=== PATIENT | male | born 1970 | race Caucasian/White ===

== ENCOUNTER 2017-07-03 09:41 | Day surgery (SDC) | payer BC ==
[2017-07-03] VITALS (8 sets, daily range): BP systolic 107–138; BP diastolic 70–101; PULSE 52–71; TEMP 98.1–98.3
[~2017-07-03] VITALS: Ht 177.8 cm; Wt 79.3 kg
[~2017-07-03 09:41] MED LIST: FLOMAX 0.40.4 MG/CAP PO; PERCOCET 325 MG1 TA2 PO; ZICAM PO; ZOFRAN 4MG T4 MG/TAB PO
[2017-07-03] MEDS ORDERED: OMEGA-3 1000 MG1 CAP PO (10:07)
== END 2017-07-03 13:08 | disposition home or self-care (01) ==
LOC: SDCO 09:41
DX: Z12.11 Encounter for screening for malignant neoplasm of colon (principal); Z80.0 Family history of malignant neoplasm of digestive organs
CPT/HCPCS: OP; J2250; J2405; J3010; J7030